=== PATIENT | female | born 1980 | race Caucasian/White ===

== ENCOUNTER → 2018-12-21 | Outpatient (CLI) | payer OTHER ==
[2018-12-21 23:48] LABS: Gliadin AB IgA, Unit <0.2 U/mL
== END ==
LOC: LABWHC1 16:54
PROVIDERS: ATTEND Internal Medicine Gastroenterology
DX: R19.4 Change in bowel habit (principal)
CPT/HCPCS: 36415; 83516

== ENCOUNTER → 2020-03-12 | Outpatient (CLI) | payer OTHER ==
[2020-03-12 15:51] VITALS: BMI 40.1
== END | disposition home or self-care (01) ==
LOC: DBWHC3 09:51
PROVIDERS: ATTEND Family Medicine
DX: Z71.3 Dietary counseling and surveillance (principal)
CPT/HCPCS: 97802

== ENCOUNTER 2023-04-13 19:52 | Emergency (ER) | payer OTHER ==
[2023-04-13 19:57] VITALS: TEMP 98.5
[2023-04-13] MEDS ORDERED: DIPH,PERTUS(ACELL)TETVAC-LF 0.5 ML VIAL IM ONE (20:03)
[2023-04-13] MEDS ORDERED: LIDOCAINE 1% INJ 10MG/ML (20 ML MDV) SQ ONE (20:03)
[2023-04-13] MEDS ORDERED: MORPHINE SULFATE 4 MG/ML SYRINGE IM STA (20:06)
[2023-04-13] MEDS ORDERED: ONDANSETRON ODT 4 MG TAB PO STA (20:06)
--- NOTE | 2023-04-13 20:08 | ED ---
Animal Bite HPI - General Chief Complaint: Animal Bite Stated Complaint: dog bite-upper right thigh Time Seen by Provider: 04/13/23 19:58 Source: patient Mode of arrival: ambulatory Limitations: no limitations - History of Present Illness Initial Comments: 43-year-old female presenting with chief complaint of dog bite. Patient was bitten by her own dog that is up-to-date on vaccinations on the posterior portion of the right thigh. Patient has several large lacerations to the thigh. She admits to 10/10 pain and full range of motion. Unsure she is up-to-date on her tetanus. - Related Data Previous Rx's Medication Instructions Recorded Amoxic-Pot Clav 875-125Mg 1 tab PO BID 10 Days #20 tab 04/13/23 [Augmentin 875-125] Allergies Allergy/AdvReac Type Severity Reaction Status Date / Time No Known Allergies Allergy Verified 04/13/23 21:08 Review of Systems ROS Statement: Those systems with pertinent positive or pertinent negative responses have been documented in the HPI. ROS Other: All systems not noted in ROS Statement are negative. Past Medical History Past Medical History: No Reported History Past Surgical History: Tonsillectomy Past Psychological History: No Psychological Hx Reported Smoking Status: Never smoker Past Alcohol Use History: Occasional Past Drug Use History: None Reported General Exam Limitations: no limitations General appearance: alert, in no apparent distress Head exam: Present: atraumatic, normocephalic, normal inspection Eye exam: Present: normal appearance, EOMI Neck exam: Present: normal inspection, full ROM Right Upper Leg exam: Present: laceration (several large lacerations) Neurological exam: Present: alert, oriented X3, CN II-XII intact Psychiatric exam: Present: normal affect, normal mood Course Vital Signs 04/13/23 19:53 Temperature 98.5 F Pulse Rate 90 Respiratory 22 Rate Blood Pressure 154/91 O2 Sat by Pulse 99 Oximetry Procedures - Laceration Laceration #1 Consent Obtained: verbal consent Indication: laceration Site: lower extremity (Right thigh) Size (cm): 7 Description: linear Depth: simple, single layer Anesthetic Used: lidocaine 1%, without epi Anesthesia Technique: local infiltration Pre-repair: wound explored, irrigated extensively Type of Sutures: nylon Size of Sutures: 4-0 Technique: simple, interrupted Patient Tolerated Procedure: well Laceration #2 Consent Obtained: verbal consent Indication: laceration Site: lower extremity (Right thigh) Size (cm): 5 Description: linear Depth: simple, single layer Anesthetic Used: lidocaine 1%, without epi Anesthesia Technique: local infiltration Pre-repair: wound explored, irrigated extensively Type of Sutures: nylon Size of Sutures: 4-0 Technique: simple, interrupted Patient Tolerated Procedure: well Medical Decision Making - Medical Decision Making Was pt. sent in by a medical professional or institution (ROSS Moreno, ABATTOIR MANAGER, urgent care, hospital, or half-way...) When possible be specific @ -No Did you speak to anyone other than the patient for history (EMS, parent, family, police, friend...)? What history was obtained from this source @ -No Did you review nursing and triage notes (agree or disagree)? Why? @ -I reviewed and agree with nursing and triage notes Were old charts reviewed (outside hosp., previous admission, EMS record, old EKG, old radiological studies, urgent care reports/EKG's, half-way records)? Report findings @ -No old charts were reviewed Differential Diagnosis (chest pain, altered mental status, abdominal pain women, abdominal pain men, vaginal bleeding, weakness, fever, dyspnea, syncope, headache, dizziness, GI bleed, back pain, seizure, CVA, palpatations, mental health, musculoskeletal)? @ -not applicable EKG interpreted by me (3pts min.). @ -As above X-rays interpreted by me (1pt min.). @ -X-ray shows no evidence of foreign body or acute osseous process CT interpreted by me (1pt min.). @ -None done U/S interpreted by me (1pt. min.). @ -None done What testing was considered but not performed or refused? (CT, X-rays, U/S, labs)? Why? @ -None What meds were considered but not given or refused? Why? @ -None Did you discuss the management of the patient with other professionals ( professionals i.e. ROS[facility] Moreno, ABATTOIR MANAGER, lab, RT, psych nurse, social media content specialist, dietitian teacher, teacher, pharmaceutical officer, manager case management)? Give summary @ -No Was smoking cessation discussed for >3mins.? @ -No Was critical care preformed (if so, how long)? @ -No Were there social determinants of health that impacted care today? How? (Homelessness, low income, unemployed, alcoholism, drug addiction, transportation, low edu. Level, literacy, decrease access to med. care, snf, rehab)? @ -No Was there de-escalation of care discussed even if they declined (Discuss DNR or withdrawal of care, Hospice)? DNR status @ -No What co-morbidities impacted this encounter? (DM, HTN, Smoking, COPD, CAD, Cancer, CVA, ARF, Chemo, Hep., AIDS, mental health diagnosis, sleep apnea, morbid obesity)? @ -None Was patient admitted / discharged? Hospital course, mention meds given and route, prescriptions, significant lab abnormalities, going to OR and other pertinent info. @ -43-year-old female presenting with chief complaint of dog bite to the right thigh that occurred this evening. The dog was her dog and is up-to-date on his vaccinations. Patient is unsure when her last tetanus shot was, tetanus is up-to-date today. Patient has numerous wounds of varying sizes to the right thigh. The wounds are thoroughly irrigated and repaired using 4-0 nylon. Patient is educated on wound care and signs of infection. She started on Augmentin. Follow-up with PCP. Report back to ER with any new or worsening symptoms. Discussed return parameters and answered all questions. Patient conveyed verbal understanding and agreed to the plan. I discussed this case in detail with my attending Dr. Fortune Undiagnosed new problem with uncertain prognosis? @ -No Drug Therapy requiring intensive monitoring for toxicity (Heparin, Nitro, Insulin, Cardizem)? @ -No Were any procedures done? @ -Laceration repair Diagnosis/symptom? @ -Dog bite Acute, or Chronic, or Acute on Chronic? @ -Acute Uncomplicated (without systemic symptoms) or Complicated (systemic symptoms)? @ -Uncomplicated Side effects of treatment? @ -No Exacerbation, Progression, or Severe Exacerbation? @ -No Poses a threat to life or bodily function? How? (Chest pain, USA, LA, pneumonia, PE, COPD, DKA, ARF, appy, cholecystitis, CVA, Diverticulitis, Homicidal, Suicidal, threat to staff... and all critical care pts) @ -No Disposition Clinical Impression: Dog bite Disposition: HOME SELF-CARE Condition: Good Instructions (If sedation given, give patient instructions): Animal Bite (ED) Additional Instructions: Follow-up with PCP. Report back to ER with any new or worsening symptoms. You may wash the wounds gently with soap and water. Do not use Neosporin. Do not fully submerge the wound, such as baths or swimming. Sutures may be removed in 10-14 days. Monitor for signs of infection, including but not limited to redness, swelling, warmth, tenderness, discharge. Prescriptions: Amoxic-Pot Clav 875-125Mg [Augmentin 875-125] 1 tab PO BID 10 Days #20 tab Is patient prescribed a controlled substance at d/c from ED?: No Referrals: Shreya Diaz, PAC [Primary Care Provider] - 1-2 days Time of Disposition: 22:16
--- NOTE | 2023-04-13 21:44 | XR ---
EXAMINATION TYPE: XR femur RT DATE OF EXAM: 04/13/2023 COMPARISON: None HISTORY: Dog bite medial femur TECHNIQUE: 2 view right femur FINDINGS: There is narrowing of the medial and lateral compartment joint spaces of the knee. No acute fractures are evident. Femoral head articulates with the acetabulum. No radiopaque foreign bodies or within the soft tissues. IMPRESSION: 1. No acute osseous abnormality right femur
[2023-04-13] MEDS ORDERED: AMOXIC-POT CLAV 875-125MG 1 EACH TAB PO STA (22:17)
[2023-04-13 23:17] VITALS: BP 127/84; PULSE 76; RESP 20
== END 2023-04-13 23:17 | disposition home or self-care (01) ==
LOC: EC 19:52
DX: S71.151A Open bite, right thigh, initial encounter (principal); Z23 Encounter for immunization; W54.0XXA Bitten by dog, initial encounter
CPT/HCPCS: 73552; 90715; 99283; 96372; 90471; 12004; J2270; J2001

== ENCOUNTER → 2023-05-11 | Outpatient (CLI) | payer OTHER ==
[2023-05-11 12:18] LABS: Basophils # (A) 0.1 k/uL (0-0.2); Basophils % (A) 0 %; Eosinophils # (A) 0.5 k/uL (0-0.7); Eosinophils % (A) 4 %; HCT 44.1 % (34.0-46.0); HGB 14.6 gm/dL (11.4-16.0); Lymphocytes # (A) 1.9 k/uL (1.0-4.8); Lymphocytes % (A) 17 %; MCH 32.3 pg (25.0-35.0); MCV 97.7 fL (80.0-100.0); Mean Platelet Volume 8.6; Monocytes # (A) 0.5 k/uL (0-1.0); Monocytes % (A) 4 %; Neutrophils # (A) 8.5 k/uL (1.3-7.7); Neutrophils % (A) 74 %; Platelet Count 317 k/uL (150-450); RBC 4.51 m/uL (3.80-5.40); RDW 13.3 % (11.5-15.5); WBC 11.6 k/uL (3.8-10.6)
--- NOTE | 2023-05-11 13:14 | CT ---
EXAMINATION TYPE: CT lower extremity RT w con DATE OF EXAM: 05/11/2023 COMPARISON: HISTORY: open bite wound right lower leg, distal to knee CT DLP: 1344 mGycm Automated exposure control for dose reduction was used. CONTRAST: Performed with IV Contrast, patient injected with 100 mL of Isovue 300. FINDINGS: There is no skin thickening of the soft tissue edema or laceration on the medial margin of by. No for eign body. No abscess formation. Diffuse soft tissue edema. There is arthropathy of the knee and hip joint. Correlate for femoral acetabular injection into the t here is no destructive changes. No acute fracture. IMPRESSION: 1. SKIN THICKENING WITH SUSPECTED SOFT TISSUE LACERATION ALONG THE MEDIAL THIGH. DIFFUSE SUBCUTANEOUS EDEMA COULD BE ON THE BASIS OF POSTTRAUMATIC EDEMA CORRELATE CLINICALLY TO EXCLUDE CELLULITIS. NO DI AGNOSTIC EVIDENCE OF ABSCESS.
[2023-05-11 20:01] LABS: ALT 48 U/L (8-44); AST 30 U/L (13-35); Albumin 4.8 d/dL (3.8-4.9); Albumin/Globulin Ratio 1.78 Ratio (1.60-3.17); Alkaline Phosphatase 96 U/L (41-126); BUN/Creat Ratio 11.44 Ratio (12.00-20.00); Blood Urea Nitrogen 10.3 mg/dL (9.0-27.0); Carbon Dioxide 24.4 mmol/L (21.6-31.8); Chloride 103 mmol/L (96-109); Globulin 2.7 d/dL (1.6-3.3); Glucose 119 mg/dL (70-110); Potassium 4.3 mmol/L (3.5-5.5); Sodium 141 mmol/L (135-145); Total Bilirubin 1.1 mg/dL (0.3-1.2); Total Protein 7.5 d/dL (6.2-8.2)
== END | disposition home or self-care (01) ==
LOC: RADCTMAIN 11:34
PROVIDERS: ATTEND Family Medicine
DX: S82.851D Displaced trimalleolar fracture of right lower leg, subsequent encounter for closed fracture with routine healing (principal); R60.0 Localized edema
CPT/HCPCS: 80053; 85025; 73701; 36415; Q9967

== ENCOUNTER → 2023-06-01 | Outpatient (CLI) | payer OTHER ==
--- NOTE | 2023-06-01 12:58 | CA ---
Transthoracic Echo Report Name: Christiana Ward Age: 43 Gender: F : 1980 Exam Date: 06/01/2023 11:07 Exam Location: [place] [facility] Ht (in): 68 Wt (lb): 270 Ordering Physician: Prabhjot Loyola MD Attending/Referring Phys: Shreya Diaz PAC Sales Executive Leonardo Stanton Procedure CPT: Indications: M79.89 OTHER SPECIFIED SOFT TISSUE DISORDERS Cardiac Hx: Technical Quality: Fair Contrast 1: Total Dose (mL): Contrast 2: Total Dose (mL): MEASUREMENTS (Male / Female) Normal Values 2D ECHO LV Diastolic Diameter PLAX 4.8 cm 4.2 - 5.9 / 3.9 - 5.3 cm LV Systolic Diameter PLAX 3.2 cm IVS Diastolic Thickness 1.1 cm 0.6 - 1.0 / 0.6 - 0.9 cm LVPW Diastolic Thickness 1.2 cm 0.6 - 1.0 / 0.6 - 0.9 cm LV Relative Wall Thickness 0.5 RV Internal Dim ED PLAX 3.6 cm LVOT Diameter 2.1 cm Aortic Root Diameter 2.9 cm LA Systolic Diameter LX 3.0 cm 3.0 - 4.0 / 2.7 - 3.8 cm LV Diastolic Volume MOD BP 57.5 cm??? 67 - 155 / 56 - 104 cm??? LV Systolic Volume MOD BP 22.0 cm??? 22 - 58 / 19 - 49 cm??? LV Ejection Fraction MOD BP 61.8 % >= 55 % LV Diastolic Volume MOD 4C 67.2 cm??? LV Systolic Volume MOD 4C 22.3 cm??? LV Ejection Fraction MOD 4C 66.9 % LV Diastolic Length 4C 7.6 cm LV Systolic Length 4C 6.5 cm LV Diastolic Volume MOD 2C 49.0 cm??? LV Systolic Volume MOD 2C 21.0 cm??? LV Ejection Fraction MOD 2C 57.1 % LV Diastolic Length 2C 7.5 cm LV Systolic Length 2C 6.1 cm LA Volume 37.5 cm??? 18 - 58 / 22 - 52 cm??? Ascending Aorta Diameter 3.8 cm DOPPLER AV Peak Velocity 143.2 cm/s AV Peak Gradient 8.2 mmHg LVOT Peak Velocity 111.5 cm/s LVOT Peak Gradient 5.0 mmHg LVOT Velocity Time Integral 23.2 cm LVOT Stroke Volume 77.3 cm??? LVOT Stroke Volume Index 33.3 ml/m??? AV Area Cont Eq pk 2.6 cm??? MV Peak Velocity 110.6 cm/s MV Peak Gradient 4.9 mmHg MV Mean Velocity 54.2 cm/s MV Mean Gradient 1.5 mmHg MV Velocity Time Integral 35.8 cm MR Peak Velocity 501.6 cm/s MR Peak Gradient 100.6 mmHg Mitral E Point Velocity 99.9 cm/s Mitral A Point Velocity 59.4 cm/s Mitral E to A Ratio 1.7 MV Deceleration Time 274.1 ms MV E' Velocity 8.4 cm/s Mitral E to MV E' Ratio 11.9 TR Peak Velocity 262.0 cm/s TR Peak Gradient 27.4 mmHg Right Ventricular Systolic Press 32.4 mmHg PV Peak Velocity 102.7 cm/s PV Peak Gradient 4.2 mmHg FINDINGS Left Ventricle Normal LV size and wall thickness. Left ventricular ejection fraction is estimated at 55-60 %.normal left ventricular wall motion. Normal left ventricular diastolic filling pattern. Right Ventricle Normal right ventricular size. Right Atrium Normal right atrial size. Left Atrium Normal left atrial size. Mitral Valve Structurally normal mitral valve. Mild MR. Aortic Valve Aortic valve not well visualized. AV appears to be trileaflet. no aortic valve stenosis or regurgitation. Tricuspid Valve Structurally normal tricuspid valve.mild tricuspid regurgitation. Pulmonic Valve Pulmonic valve not well visualized. Trace PI. Pericardium Normal pericardium. Aorta Normal size aortic root. Ascending AO sahra= 3.8cm CONCLUSIONS 1. Normal left ventricle size and systolic function 2. Mild mitral and tricuspid regurgitation with no evidence of pulmonary hypertension Previewed by: Dr. Kathleen Crystal MD (Electronically Signed) Final Date: 01 June 2023 12:57
--- NOTE | 2023-06-01 17:12 | US ---
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 FINDINGS: EXAM MEASUREMENTS: Liver Length: 17.6 cm Gallbladder Wall: .2 cm CBD: .4 cm Right Kidney: 11.9 x 4.3 x 4.6 cm [facility] [facility] [employer]ILDER NOTES: Pancreas: Tail obscured by overlying bowel gas Liver: Increased attenuation Gallbladder: No stones seen Evidence for sonographic Linda's sign: No CBD: wnl Right Kidney: No hydronephrosis or masses seen IMPRESSION: 1. Hepatomegaly
== END | disposition home or self-care (01) ==
LOC: RADUSWWP 08:50
PROVIDERS: ATTEND Family Medicine
DX: I08.1 Rheumatic disorders of both mitral and tricuspid valves (principal); E04.2 Nontoxic multinodular goiter; M79.89 Other specified soft tissue disorders; R74.01 Elevation of levels of liver transaminase levels; R16.0 Hepatomegaly, not elsewhere classified
CPT/HCPCS: 76705; 93306

== ENCOUNTER → 2023-07-25 | Outpatient (CLI) | payer OTHER | END | disposition home or self-care (01) | LOC: RADECHMAIN 08:44 | PROVIDERS: ATTEND Family Medicine | DX: Z53.9 Procedure and treatment not carried out, unspecified reason (principal) ==

== ENCOUNTER → 2023-07-25 | Outpatient (CLI) | payer OTHER ==
--- NOTE | 2023-07-25 11:06 | CA ---
Exercise Stress Test Report Name: Christiana Ward Exam Date: 07/25/2023 09:55 Exam Location: [place] [facility] Ht (in): 68 Wt (lb): 280 BSA: 2.36 Ordering Phys: Prabhjot Loyola MD Referring Phys: Shreya Diaz PAC Technologist: Edmundo Conley Age: 43 Gender: F : 1980 Procedure CPT: Indications: R00.2 palpitations ICD-10 Codes: Patient History: Medications: N/A Meds past 24 hrs: Pretest Chest Pain: STRESS TEST Protocol Exercise Duration (min:sec): 09:[address] Depressions (mm): 0 Angina Score: 0 Betts Score: 9 Resting HR (bpm): 82 Peak HR (bpm): 159 Resting BP (mmHg): 127 / 78 Peak BP (mmHg): 215 / 78 MPHR: 176 Target HR: 150 % MPHR: 90 METS: 8.3 Total Dose: Peak Dose: Atropine: Double Product: 97246 BP Response: Stress Termination: Reached target heart rate Stress Symptoms: No chest pain or symptoms Stress Summary: The patient's target heart rate was achieved, The hemodynamic response to exercise was normal ECG ANALYSIS Resting ECG: Sinus rhythm. Normal conduction. No arrhythmias. Normal repolarization. Stress ECG: No ECG evidence of ischemia with exercise. CONCLUSIONS Patient falls into low-risk group (DTS >= +5). This associates the patient with an annual CV mortality <= 0.5%. 1. Average exercise tolerance 2. Normal stress electrocardiogram with no evidence of stress induced ischemia. Dr. Kathleen Crystal MD (Electronically Signed) Final Date: 25 July 2023 11:06
== END | disposition home or self-care (01) ==
LOC: RADNMMAIN 08:46
PROVIDERS: ATTEND Family Medicine
DX: M79.89 Other specified soft tissue disorders (principal); R00.2 Palpitations
CPT/HCPCS: 93017; 93270

== ENCOUNTER → 2023-07-28 | Outpatient (CLI) | payer OTHER ==
[2023-07-28 17:52] LABS: LDL Cholesterol,Calculated 135.7 mg/dL (0.0-131.0)
== END | disposition home or self-care (01) ==
LOC: LABWHC1 09:05
PROVIDERS: ATTEND Family Medicine
DX: Z13.1 Encounter for screening for diabetes mellitus (principal); E78.5 Hyperlipidemia, unspecified; D72.829 Elevated white blood cell count, unspecified
CPT/HCPCS: 80061; 83036

== ENCOUNTER → 2023-09-20 | Outpatient (CLI) | payer OTHER ==
--- NOTE | 2023-09-22 13:19 | MM ---
Reason for Exam: Screening (asymptomatic). Last mammogram was performed 1 year(s) and 1 month(s) ago. Patient History: Menarche at age 9. First Full-Term at age 16. Premenopausal. Paternal grandmother had breast cancer, age 70. Risk Values: Renee 5 year model risk: 0.6%. NCI Lifetime model risk: 7.7%. Prior Study Comparison: 04/09/2020 Bilateral Screening Mammogram, [facility]. 08/31/2021 Bilateral Screening Mammogram, [facility]. 09/08/2022 Bilateral Screening Mammogram, [facility]. Tissue Density: The breast tissue is heterogeneously dense. This may lower the sensitivity of mammography. Findings: Analyzed By CAD. There is no suspicious group of microcalcifications or new suspicious mass. Overall Assessment: Negative, BI-RAD 1 Management: Screening Mammogram of both breasts in [address] [facility] will attempt to contact patient to return for supplemental views and ultrasound if indicated. Patient should continue monthly self-breast exams. A clinical breast exam by your physician is recommended on an annual basis. This exam should not preclude additional follow-up of suspicious palpable abnormalities. Note on Renee scores and lifetime risk: 1. A Renee score greater than 3% is considered moderate risk. If this is the case, consider specialist referral to assess eligibility for a risk reducing agent. 2. If overall lifetime risk for the development of breast cancer is 20% or higher, the patient may qualify for future screening with alternating mammogram and breast MRI. Electronically signed and approved by: Abhinav Goff DO
== END | disposition home or self-care (01) ==
LOC: RADMAMWWP 08:00
PROVIDERS: ATTEND Family Medicine
DX: Z12.31 Encounter for screening mammogram for malignant neoplasm of breast (principal); Z80.3 Family history of malignant neoplasm of breast
CPT/HCPCS: 77063; 77067

== ENCOUNTER → 2024-08-20 | Outpatient (CLI) | payer OTHER ==
--- NOTE | 2024-08-20 12:07 | CT ---
EXAMINATION TYPE: CT abdomen pelvis w con DATE OF EXAM: 08/20/2024 9:06 AM COMPARISON: None. CLINICAL INDICATION: Female, 44 years old with history of R10.9 ABD PAIN, abdominal pain, bloody stoo l, bloating TECHNIQUE:CT scan of the abdomen and pelvis is performed with Oral Contrast and with IV Contrast, pat ient injected with 100 mL of Isovue 300. CT DLP: 2363.90 mGycm, Automated exposure control for dose reduction was used. FINDINGS: LUNG BASES-: No visible nodule. No infiltrate. LIVER/GB: No calcified gallstones. There is evidence of hepatic steatosis. Hepatomegaly with the li edmund measuring 25.1 cm. No space occupying hepatic lesion. Biliary tree is of normal caliber. PANCREAS: No inflammation. No distinct mass. SPLEEN: No splenic enlargement. No lesion seen. ADRENALS: No nodule. No thickening. KIDNEYS/BLADDER: No hydronephrosis. No nephrolithiasis. No distinct renal mass. Urinary bladder g rossly unremarkable. BOWEL: Normal appendix. Normal bowel caliber. No inflammation. GENITAL ORGANS: No gross abnormality. LYMPH NODES: No greater than 1cm abdominal or pelvic lymph nodes are appreciated. AORTA: No significant abnormality. OSSEOUS STRUCTURES: No significant abnormality is seen. OTHER: No significant additional abnormality is seen. IMPRESSION: 1. Hepatomegaly with underlying hepatic steatosis. [facility], , 08/20/2024 12:05 PM
== END | disposition home or self-care (01) ==
LOC: RADCTMAIN 06:19
PROVIDERS: ATTEND Family Medicine
DX: K76.0 Fatty (change of) liver, not elsewhere classified (principal); K92.1 Melena; R14.0 Abdominal distension (gaseous)
CPT/HCPCS: 74177; Q9967

== ENCOUNTER → 2024-10-12 | Outpatient (CLI) | payer OTHER ==
--- NOTE | 2024-10-12 07:53 | MM ---
Reason for Exam: Screening (asymptomatic). Last screening mammogram was performed 12 month(s) ago. Patient History: Menarche at age 9. First Full-Term at age 16. Premenopausal. Paternal grandmother had breast cancer, age 70. Risk Values: Renee 5 year model risk: 0.6%. NCI Lifetime model risk: 7.7%. Prior Study Comparison: 08/31/2021 Bilateral Screening Mammogram, [facility] . 09/08/2022 Bilateral Screening Mammogram, [facility] . 09/20/2023 Bilateral MG 3D screening mammo w/cad, [facility]. Tissue Density: The breasts are heterogeneously dense, which may obscure small masses. Findings: Analyzed By CAD. Unchanged bilateral areas of asymmetric density. There is no suspicious group of microcalcifications or new suspicious mass in either breast. Overall Assessment: Benign, BI-RAD 2 Management: Screening Mammogram of both breasts in 1 year. Patient should continue monthly self-breast exams. A clinical breast exam by your physician is recommended on an annual basis. This exam should not preclude additional follow-up of suspicious palpable abnormalities. Note on Renee scores and lifetime risk: 1. A Renee score greater than 3% is considered moderate risk. If this is the case, consider specialist referral to assess eligibility for a risk reducing agent. 2. If overall lifetime risk for the development of breast cancer is 20% or higher, the patient may qualify for future screening with alternating mammogram and breast MRI. [facility], , 10/12/2024 7:50 AM. Electronically signed and approved by: Bruno Mcdowell M.D. Radiologist
== END | disposition home or self-care (01) ==
LOC: RADMAMWWP 07:06
PROVIDERS: ATTEND Family Medicine
DX: Z12.31 Encounter for screening mammogram for malignant neoplasm of breast (principal); R92.333 Mammographic heterogeneous density, bilateral breasts; Z80.3 Family history of malignant neoplasm of breast
CPT/HCPCS: 77063; 77067

== ENCOUNTER 2024-10-16 09:40 | Day surgery (SDC) | payer OTHER ==
[2024-10-11 11:58] VITALS: BMI 44.1
[2024-10-16 10:15] VITALS: TEMP 97.2
[2024-10-16] MEDS: IV FLUID CONTINUATION 1,000 ML IV ONE (10:23)
[2024-10-16] MEDS: LACTATED RINGERS 1,000 ML IV SCH (10:23)
[2024-10-16] MEDS ORDERED: LIDOCAINE 2% (PF) 20 MG/ML 5 ML VIAL ONE (11:16)
[2024-10-16] MEDS ORDERED: PROPOFOL 10 MG/ML 20 ML VIAL IV ONE (11:16)
--- NOTE | 2024-10-16 11:20 | P.GSHP ---
History of Present Illness H&P Date: 10/16/24 Chief Complaint: Rectal bleeding 44-year-old female here for colonoscopy. Patient's last colonoscopy 10 years ago was reportedly normal. At the time she was having loose stools, reflux, and intermittent rectal bleeding. Symptoms seem to improve for a while but recently has had some abdominal bloating and some intermittent rectal bleeding. No constipation or diarrhea currently. No family history of colon cancer. Past Medical History Past Medical History: GERD/Reflux, Sleep Apnea/CPAP/BIPAP Additional Past Medical History / Comment(s): Severe sleep apnes-uses CPAP. History of Any Multi-Drug Resistant Organisms: None Reported Past Surgical History: Tonsillectomy, Tubal Ligation Additional Past Surgical History / Comment(s): Cyst removed from lt wrist x2. Colonoscopy Additional Past Anesthesia/Blood Transfusion Reaction / Comment(s): No hx of blood transfusion to date. Has a hard time "coming out" of anesthesia. Grandfather has hard time coming out of anesthesia. Mother gets nauseated. Smoking Status: Former smoker - Past Family History Father Family Medical History: No Reported History Medications and Allergies Home Medications Medication Instructions Recorded Confirmed Type Acetaminophen 1,000 mg PO DIRECTED PRN 10/11/24 10/11/24 History Vitamin D(Unknown Dose) 125 mcg PO QAM 10/11/24 10/11/24 History Allergies Allergy/AdvReac Type Severity Reaction Status Date / Time No Known Allergies Allergy Verified 10/11/24 11:46 Surgical - Exam Vital Signs Temp Pulse Resp BP Pulse Ox 97.2 F L 62 20 146/75 95 10/16/24 10:14 10/16/24 10:14 10/16/24 10:14 10/16/24 10:14 10/16/24 10:14 Physical exam: General: Well-developed, well-nourished HEENT: Normocephalic, sclerae nonicteric Abdomen: Nontender, nondistended Extremities: No edema Neuro: Alert and oriented Assessment and Plan (1) Rectal bleeding Narrative/Plan: Will proceed with colonoscopy at this time. Current Visit: Yes Status: Acute Code(s): K62.5 - HEMORRHAGE OF ANUS AND RECTUM SNOMED Code(s): 29348456
--- NOTE | 2024-10-16 11:29 | P.PCN ---
Date of Procedure: 10/16/24 Procedure(s) Performed: PREOPERATIVE DIAGNOSIS: Rectal bleeding POSTOPERATIVE DIAGNOSIS: Normal exam PROCEDURE: Colonoscopy ANESTHESIA: MAC SURGEON: Henry Orr M.D. SPECIMENS: None ENDOSCOPIC PROCEDURE: The patient was placed on the endoscopy table in the left decubitus position. The Olympus colonoscope was inserted into the anus and passed under direct visualization to the base of the cecum. The appendiceal orifice was visualized. From that point the scope was slowly withdrawn inspecting all surfaces carefully. There were no neoplastic inflammatory or polypoid lesions throughout the cecum, ascending, transverse, descending, sigmoid and rectum. There was no visible diverticulosis noted. Digital rectal examination was normal. The patient was taken to the recovery room in stable condition per anesthesia guidelines. RECOMMENDATIONS: Resume diet. Repeat colonoscopy 10 years.
[2024-10-16 11:39] VITALS: BP 127/83; PULSE 73; RESP 16
== END 2024-10-16 12:43 | disposition home or self-care (01) ==
LOC: ORWHC2ENDO 09:40
PROVIDERS: ATTEND Surgery
DX: K62.5 Hemorrhage of anus and rectum (principal); K21.9 Gastro-esophageal reflux disease without esophagitis; G47.33 Obstructive sleep apnea (adult) (pediatric); F10.99 Alcohol use, unspecified with unspecified alcohol-induced disorder; Z90.89 Acquired absence of other organs; Z98.51 Tubal ligation status; Z99.89 Dependence on other enabling machines and devices; Z87.891 Personal history of nicotine dependence; Z79.899 Other long term (current) drug therapy
CPT/HCPCS: 81025; 45378; J2704; J2003